=== PATIENT | female | born 1960 | race Caucasian/White ===

== ENCOUNTER 2021-04-11 07:50 | Emergency (ER) | payer OTHER ==
[~2021-04-11] VITALS: Ht 154.9 cm; Wt 113.4 kg
[2021-04-11 08:18] VITALS: BP 142/98
[2021-04-11] MEDS ORDERED: LEVO-T75 MCG PO (08:25)
[2021-04-11] MEDS ORDERED: TOPROL XL25 MG PO (08:26)
[2021-04-11] MEDS ORDERED: FLONASE 0.05%50 MCG NARES (08:26)
== END 2021-04-11 10:17 | disposition left against medical advice (07) ==
LOC: M.ERS 07:50
DX: Z53.21 Procedure and treatment not carried out due to patient leaving prior to being seen by health care provider (principal)